=== PATIENT | male | born 1935 | race Caucasian/White ===

== ENCOUNTER 2016-07-06 08:50 | Day surgery (SDC) | payer MEDICARE ==
[~2016-07-06 08:50] MED LIST: EPINEPHRINE INJ 1 MG/10 ML DISP.SYRIN ONE; FENTANYL CITRATE INJ/PF 100 MCG/2 ML AMPUL ONE; FLUMAZENIL INJ 0.5 MG/5 ML VIAL IV ONE; GLUCAGON,HUMAN RECOMB 1 MG INJ ONE; GLYCOPYRROLATE INJ 0.4 MG/2 ML VIAL ONE; NALOXONE HCL INJ/PF 0.4 MG/1 ML SDV ONE; ONDANSETRON HCL INJ/PF 4 MG/2 ML SDV ONE; PROMETHAZINE HCL INJ 25 MG/1 ML VIAL ONE
[2016-07-06] MEDS: MIDAZOLAM 2 MG/2 ML INJ ONE ×2 (10:15→10:20)
[2016-07-06 11:50] VITALS: BP 139/58
--- NOTE | 2016-07-06 11:51 | PDOC DISCHARGE SUMMARY ---
Discharge Summary (SDC) - Discharge Final Diagnosis: 1. Chronic gastritis 2. Normal colonoscopy Date of Surgery: 07/06/16 Discharge Date: 07/06/16 Condition: Good Forms: Discharge POC-Adult, Sedation D/C Instructions Treatment or Instructions: [address] [address] POST ENDOSCOPY DISCHARGE INSTRUCTIONS 1. Diet: Start clear liquids that a regular diet as tolerated. 2. Resume all preoperative medications. All oral anticoagulants and aspirins can be resumed 24 hours after procedure. 3. If a polypectomy was performed some bleeding per rectum may occur. This should stop within 3 days. If not, please contact the office. 4. If you had a colonoscopy you may experience some bloating and delayed return of normal bowel function for several days, your regular bowel movement pattern should resume within a week. 5. Please contact [facility] at to make an appointment with Dr. Bennett for 1 to 3 weeks following procedure. 6. If you have any questions or concerns regarding your care,treatment plan or follow up, please contact our office. 7. Per clinical guidelines we recommend you undergo a repeat colonoscopy in 10 years. Referrals: BRANDI BENNETT MD [ACTIVE STAFF] - 07/20/16 2:45 pm Discharge Diet: As Tolerated Discharge Activity: Activity As Tolerated, Balance Activity w/Rest, No Driving Home Care Assistance: None Needed Report the Following to Your Physician Immediately: Shortness of Breath, Nausea , Vomiting, Increase in Pain, Fever over 101 Degrees
--- NOTE | 2016-07-06 11:56 | Operative Report ---
Operative Report DATE OF SURGERY: 07/06/16 PREOPERATIVE DIAGNOSIS: 1. Unexplained weight loss POSTOPERATIVE DIAGNOSIS: 1. Chronic gastritis. 2. Normal colonoscopy OPERATION: 1. Esophagogastroduodenoscopy. 2. Mucosal biopsy of the gastric body. 3 total colonoscopy to cecum SURGEON: BRANDI MENDEZ ANESTHESIA: Moderate Sedation TISSUE REMOVED OR ALTERED: Mucosal biopsy. COMPLICATIONS: None ESTIMATED BLOOD LOSS: scant INTRAOPERATIVE FINDINGS: See below PROCEDURE: The patient was taken to the endoscopy suite of the [facility] were IV sedation was induced. He's placed in the left lateral position, semirecumbent, these inserted and hypopharynx anesthetized. Old EGD scope was passed through the hypopharynx down the esophagus through the stomach and into the duodenum. This is well-tolerated by the patient. The duodenum was normal and the pylorus was normal the stomach greater curvature was chronically inflamed and there was scattered inflammation asked for cardia. There was no evidence of ulceration, bleeding, tumor, or polyp. Random biopsy of the gastric body was obtained and sent for flow and histology. Bleeding was negligible Scope was brought to the GE junction. Of note there was no hiatal hernia. The esophagus was grossly unremarkable. There is no evidence of tumor or varix. Scope was withdrawn oropharynx he tolerated procedure well. Instrumentation was set up for conventional colonoscopy. Plan and surgical timeout were conducted The patient was placed in the left lateral decubitus position with knees to chest. A perianal examination was performed. There was no visible or palpable anorectal pathology. Sphincter tone was felt to be normal. The flexible adult colonoscope was advanced through the anal rectal canal, all the way to the cecum. Utilization of the cecum was achieved and the ileocecal valve, the appendiceal orifice and transillumination of the anterior abdominal wall. This was an excellent study on the well-prepped bowel. The colonoscope was withdrawn slowly and methodically checked and the mucosa carefully. There was no evidence of tumor, stricture, bleeding or polyp. There was no evidence of diverticuloses. The scope was slowly withdrawn through the anal rectal canal. Complete visualization of the rectum was achieved with photodocumentation. The scope was withdrawn to the patient's anus. The patient tolerated the procedure well and was taken to the recovery area in stable condition. Her surveillance guidelines, patient will be an appropriate candidate for follow-up Colonoscopy approximately 10 years, or sooner if symptoms develop.
== END 2016-07-06 12:01 | disposition home or self-care (01) ==
LOC: END 08:50
PROVIDERS: ATTEND Surgery
PROC: 0DJD8ZZ Inspection of Lower Intestinal Tract, Via Natural or Artificial Opening Endoscopic (ICD-10-PCS; principal; 2016-07-06 09:45)
PROC: 0DB68ZX Excision of Stomach, Via Natural or Artificial Opening Endoscopic, Diagnostic (ICD-10-PCS; 2016-07-06 09:45)
DX: K29.50 Unspecified chronic gastritis without bleeding (principal); B96.81 Helicobacter pylori [H. pylori] as the cause of diseases classified elsewhere; K44.9 Diaphragmatic hernia without obstruction or gangrene; Z86.010 Personal history of colon polyps; R63.4 Abnormal weight loss; N40.0 Benign prostatic hyperplasia without lower urinary tract symptoms; I10 Essential (primary) hypertension; Z79.899 Other long term (current) drug therapy; Z79.891 Long term (current) use of opiate analgesic; Z68.26 Body mass index [BMI] 26.0-26.9, adult
CPT/HCPCS: 43239; 45378; 88342 ×2; 88305 ×2; J2250; J3010; J0171; J1610; J2310; J2405; J2550; J3490